=== PATIENT | male | born 1995 | race Caucasian/White ===

== ENCOUNTER 2021-05-02 16:52 | Emergency (ER) | payer SELFPAY ==
--- NOTE | ~2021-05-02 | XR_ITS ---
EXAMINATION: CHEST 2 VIEWS CLINICAL INFORMATION: cough/sob . COMPARISON: 03/21/2018. TECHNIQUE: PA and lateral views of the chest obtained. FINDINGS: The lungs are well expanded. No focal infiltrate, effusion, edema, or pneumothorax. Cardiac and mediastinal silhouettes are within normal limits for technique. No acute bony abnormality seen XR/XR chest 2V IMPRESSION: No evidence of acute disease
[2021-05-02 18:32] VITALS: BP 122/59; PULSE 82; RESP 18; TEMP 36.5; O2SAT 95; BMI 37.0
--- NOTE | 2021-05-02 19:38 | ED.URI ---
HPI - URI/Sore Throat General Chief Complaint: Upper Respiratory Symptoms Stated Complaint: chest congestion Time Seen by Provider: 05/02/21 18:49 Source: patient Mode of arrival: ambulatory History of Present Illness HPI Narrative: 25-year-old male with a past medical history of bronchitis, obesity, pneumonia, presenting to the ED complaining of chest congestion, productive cough of yellow sputum, chest tightness/mild SOB x a couple days. Denies fever, chills, ear pain, sore throat, recent travel, COVID-19 exposure, history of blood clots MD elicited complaint: cough and nasal congestion Related Data Previous Rx's Medication Instructions Recorded albuterol sulfate 2 puff INHALATION Q4-6H PRN #6.7 g 05/02/21 benzonatate [Tessalon Perles] 100 mg PO TID PRN #14 cap 05/02/21 fluticasone propionate [Flonase 2 spray INTRANASAL DAILY #16 g 05/02/21 Allergy Relief] Allergies Allergy/AdvReac Type Severity Reaction Status Date / Time No Known Allergies Allergy Verified 05/02/21 18:32 Review of Systems Review of Systems: Constitutional: No Fever, No Chills ENT/Mouth: No Ear Pain, No Nasal Congestion,No sore throat, No Rhinorrhea, No Swallowing Difficulty Eyes: No Eye Pain, No Vision Changes Cardiovascular: + Chest tightness+No SOB, No Dyspnea on Exertion, No Edema Respiratory: + Cough, + Sputum, No Wheezing Gastrointestinal: No Nausea, No Vomiting, No Diarrhea, No Constipation, No Abdominal pain Musculoskeletal: No joint pain, No Myalgias, No Joint Swelling Skin: No Skin Lesions, No rash Neuro: No Weakness, No Numbness,No Headache Yes all other systems are reviewed and are negative [facility] Past Medical History Attestation statement: The following information was validated with the patient. Medical History (Updated 05/02/21 @ 20:18 by VERONICA Grewal) Bronchitis Obesity Pneumonia Social History Social History Advance Directives: No Advance Directives Information Provided: Yes Physical Exam Vital Signs: Vital Signs: Last Vital Signs Temp 97.7 F 05/02/21 18:32 Pulse 82 05/02/21 18:32 Resp 18 05/02/21 18:32 BP 122/59 L 05/02/21 18:32 Pulse Ox 95 05/02/21 18:32 Body Mass Index 37.0 Const: General: cooperative, healthy appearing, comfortable and no acute distress Orientation/consciousness: patient oriented x3 Limitations: no limitations HENMT: Head: Yes normal to inspection Ears: hearing grossly normal bilaterally and TM's normal bilaterally General nose exam: Normal external nose present Face and sinus: Yes normal facial exam Mouth: Normal oral and palatal mucosa present Throat: Yes posterior oropharynx normal, Yes tonsils normal, Yes uvula midline and No peritonsillar mass Eyes: General: appearance normal, both eyes and all related structures EOM: EOMs intact bilaterally Neck: Neck: Yes normal visual inspection and Yes no meningeal signs Resp: Effort & Inspection: normal respiratory effort Auscultation: clear to auscultation bilaterally, no rales, no rhonchi and no wheezes Cardio: Rate: regular rate Heart sounds: S1 normal heart sound present and S2 normal heart sound present Skin: Rashes: no rashes Wounds: no wounds Neuro: General: patient oriented x3 and no meningeal signs Gait exam (Neuro): Normal gait present Extrem: General: Yes normal to inspection Course Course Course Narrative: XR chest 2V IMPRESSION: No evidence of acute disease COVID-19 negative >> results discussed with patient including worrisome signs and symptoms and strict return precautions, he verbalized understanding feel safe for discharge home MDM - URI/Sore Throat MDM Narrative Medical decision making narrative: 25-year-old male with a past medical history of bronchitis, obesity, pneumonia, presenting to the ED complaining of chest congestion, productive cough of yellow sputum, chest tightness/mild SOB x a couple days. On exam vital signs stable, NAD/well-appearing, lungs CTA. Concern for viral syndrome/COVID-19 vs pneumonia/bronchitis. Low concern for ACS/PE Plan: COVID-19 testing, CXR, reassess Lab Data Labs: Lab Results 05/02/21 Range/Units 19:07 COVID-19 (DORIE) Negative (Negative) COVID-19 Clin Com See Note Discharge Plan Discharge Clinical Impression: Upper respiratory infection Patient Disposition: Home, Self-Care Instructions: Viral Syndrome (ED) Additional Instructions: Your chest x-ray was unremarkable You tested negative for COVID-19 use albuterol inhaler at home as needed for shortness of breath/wheezing Tessalon Perlpeter for cough, Flonase is ended nasal decongestion spread Please follow-up with her primary care doctor If your symptoms persist or worsen, become unbearable, you developed fever, constant or worsening shortness of breath or chest pain please return to the ED immediately Prescriptions: New albuterol sulfate 90 mcg/actuation HFA aerosol inhaler 2 puff inhalation Q4-6H PRN (Reason: shortness of breath or wheezing) Qty: 6.7 RF: 0 benzonatate [Tessalon Perles] 100 mg capsule 100 mg PO TID PRN (Reason: cough) Qty: 14 RF: 0 fluticasone propionate [Flonase Allergy Relief] 50 mcg/actuation spray,suspension 2 spray intranasal DAILY Qty: 16 RF: 0 Referrals: Physician,None [Primary Care Provider] - 2 days
[2021-05-02 19:48] LABS: COVID-19 Test Negative (Negative)
== END 2021-05-02 20:37 | disposition home or self-care (01) ==
PROVIDERS: Emergency Provider Emergency Medicine
DX: J06.9 Acute upper respiratory infection, unspecified (principal); R05 Cough; Z20.822 Contact with and (suspected) exposure to COVID-19; Z79.899 Other long term (current) drug therapy
CPT/HCPCS: 36415; 71046; 87635; 99283